=== PATIENT | male | born 1985 | race Two or more races ===

== ENCOUNTER 2016-09-19 09:20 | Emergency (ER) | payer MEDICAID ==
[2016-09-19 09:32] VITALS: TEMP 97.9
[2016-09-19] MEDS ORDERED: IBUPROFEN 600 MG TAB PO ONE (09:42)
[2016-09-19] MEDS ORDERED: ACETAMINOPHEN 325 MG TAB PO ONE (09:42)
--- NOTE | 2016-09-19 12:15 | EDPHY ---
H & P Stated Complaint: r upper dental pain - Personal History Current Tetanus/Diphtheria Vaccine: Yes - Medical/Surgical History Hx Asthma: No Hx Chronic Respiratory Disease: No Hx Diabetes: No Hx Cardiac Disease: No Hx Renal Disease: No Hx Cirrhosis: No Hx Alcoholism: No Hx HIV/AIDS: No Hx Splenectomy or Spleen Trauma: No Other PMH: panic/anxiety - Social History Smoking Status: Current some day smoker HPI/ROS: Chief complaint: Toothache History of present illness: This is a 30-year-old male who presents to the emergency department for evaluation of a toothache. Patient reports the development of pain in the right, upper aspect of his mouth over the last day. He feels like there has been associated swelling. He does state he has a known broken tooth in this region. He denies other associated signs or symptoms including no fevers, no swelling of the face or neck, no difficulty opening or closing his mouth, no difficulty talking, swallowing or breathing. (Alex Kelley) - Physical Exam Exam: Alert, nontoxic Mouth: No erythema or edema in the mouth. Normal bite. The 1st right superior molar is cracked. ENT: Oropharynx without erythema or edema. There is no trismus, no drooling, no hoarseness, no stridor. Skin: No erythema or edema of the face or neck. (Alex Kelley) Constitutional: Initial Vital Signs Temperature (C) 36.6 C 09/19/16 09:29 Heart Rate 84 09/19/16 09:29 Respiratory Rate 18 09/19/16 09:29 Blood Pressure 115/82 H 09/19/16 09:29 O2 Sat (%) 99 09/19/16 09:29 O2 Delivery Mode Room Air Allergies/Adverse Reactions: No Known Allergies Allergy (Unverified 09/19/16 09:28) Home Medications: Medication Instructions Recorded AMOXICILLIN TRIHYDRATE [Amoxil] 875 mg PO BID 7 Days 09/19/16 Hydrocodone/APAP 5/325 [[place] 1 tab PO Q6H #6 tab 09/19/16 5/325 (*)] Hydroxyzine HCl 09/19/16 LORAZEPAM 09/19/16 Sertraline HCl 09/19/16 Medical Decision Making ED Course/Re-evaluation: Patient is seen under the supervision of my secondary supervising physician Dr. Christen Hill. Patient presents to the emergency department for tooth pain. He is nontoxic. I am concerned he is developing a dental infection. He will be started on amoxicillin. Pain management is discussed. He does have a dentist and I have encouraged him to follow up closely for definitive care of his problem. Strict return precautions are given. Patient voiced understanding and agreement with plan. (Alex Kelley) The patient was evaluated and managed by the physician veterinary assistant. I have reviewed this chart and I agree with the findings and plan of care as documented , as indicated by my signature. I am the secondary supervising physician. ( Christen Hill) - Data Points Medications Given: Discontinued Medications Acetaminophen (Tylenol) 650 mg PO EDNOW ONE Stop: 09/19/16 09:43 Last Admin: 09/19/16 09:46 Dose: 650 mg Ibuprofen (Motrin) 600 mg PO EDNOW ONE Stop: 09/19/16 09:43 Last Admin: 09/19/16 09:46 Dose: 600 mg Departure - Departure Disposition: Home, Routine, Self-Care Clinical Impression: Dental abscess Condition: Good Instructions: Dental Abscess (ED) Additional Instructions: Follow-up with a dentist for continued evaluation and care Take all antibiotics as prescribed until finished even feeling better In regards to pain control see the following: Use ibuprofen [600] mg [3] times a day for the next 2-3 days for pain In addition You have been prescribed [[place]] for pain. [[place]] contains Tylenol, do not take extra Tylenol/acetaminophen/Apap with it. It is sedating. If symptoms worsen or new symptoms develop return to the emergency room for recheck Referrals: ALISIA,UNKNOWN [Other] - As per Instructions [facility] [Outside] - As per Instructions [facility] [Outside] - As per Instructions Dental [facility] [Outside] - As per Instructions Dental [facility] [Outside] - As per Instructions Dental [facility] [Outside] - As per Instructions Prescriptions: AMOXICILLIN TRIHYDRATE [Amoxil] 875 mg PO BID 7 Days Hydrocodone/APAP 5/325 [[place] 5/325 (*)] 1 tab PO Q6H #6 tab
[2016-09-19 12:32] VITALS: BP 133/71; PULSE 69; RESP 16; O2SAT 97
== END 2016-09-19 12:31 | disposition home or self-care (01) ==
DX: K04.7 Periapical abscess without sinus (principal); F17.200 Nicotine dependence, unspecified, uncomplicated